=== PATIENT | female | born 1985 | race Caucasian/White ===

== ENCOUNTER 2018-01-17 03:26 | Emergency (ER) | payer OTHER ==
--- NOTE | 2018-01-17 03:48 | ED.PDOC ---
History of Present Illness - General Chief Complaint: Problem Time Seen by Provider: 01/17/18 03:44 Source: patient Exam Limitations: no limitations - History of Present Illness Timing/Duration: this morning, constant Quality: moderate, aching Onset Location: suprapubic Activites at Onset: none Improving Factors: nothing Worsening Factors: nothing Associated Symptoms: fever/chills Allergies/Adverse Reactions: Allergies NO KNOWN ALLERGY Allergy (Verified 01/17/18 03:44) Narcotics cause her to vomit. Home Medications: Ambulatory Orders Phenazopyridine HCl [Pyridium] 100 mg PO BID #20 tab 01/17/18 Phenazopyridine HCl [Pyridium] 200 mg PO TID #6 tab 01/17/18 Review of Systems - Review of Systems Constitutional: States: no symptoms reported EENTM: States: no symptoms reported Respiratory: States: no symptoms reported Cardiology: States: no symptoms reported Gastrointestinal/Abdominal: States: abdominal pain Genitourinary: States: dysuria Musculoskeletal: States: no symptoms reported Skin: States: no symptoms reported Neurological: States: headache Endocrine: States: no symptoms reported Hematologic/Lymphatic: States: no symptoms reported Family Medical History - Family History Mother Family History: No Known Living Status: Still Living Father Family History: No Known Living Status: Still Living Physical Exam - Physical Exam General Appearance: Alert, Well Developed, Well Groomed, Well Hydrated, Well Nourished Eyes, Ears, Nose, Throat Exam: PERRL/EOMI, normal ENT inspection Neck: non-tender, full range of motion, supple Cardiovascular/Respiratory: regular rate, rhythm, no M/R/G, normal peripheral pulses, no JVD, normal breath sounds Gastrointestinal/Abdominal: normal bowel sounds, non tender, soft, no organomegaly, no pulsatile mass Rectal Exam: deferred Back Exam: normal inspection Extremity: normal range of motion Neurologic: alert, oriented x 3 Progress - Progress Progress: 01/17/18 04:09 UA REPORTS OVER 50 WBC'S PER HPF, LEUCKOESTERASE POSITIVE. Departure - Departure Clinical Impression: Acute cystitis Qualifiers: Hematuria presence: with hematuria Qualified Code(s): N30.01 - Acute cystitis with hematuria Time of Disposition: 04:11 Disposition: Discharge to Home or Self Care Condition: Good Departure Forms: ED Discharge - Pt. Copy, Patient Portal Self Enrollment Instructions: DI for Urinary Tract Infection (UTI) Prescriptions: Phenazopyridine HCl [Pyridium] 200 mg PO TID #6 tab Phenazopyridine HCl [Pyridium] 100 mg PO BID #20 tab Home Medications: Ambulatory Orders Phenazopyridine HCl [Pyridium] 100 mg PO BID #20 tab 01/17/18 Phenazopyridine HCl [Pyridium] 200 mg PO TID #6 tab 01/17/18
[2018-01-17 03:56] VITALS: TEMP 99.3
[2018-01-17] MEDS ORDERED: cefTRIAXone SODIUM 1 GM VIAL IM ONE (04:09)
[2018-01-17] MEDS ORDERED: LIDOCAINE 1% 2 ML VIAL INJ ONE (04:19)
[2018-01-17] MEDS ORDERED: PHENAZOPYRIDINE HCL 200 MG TAB PO ONE (04:20)
[2018-01-17] MEDS: HYDROcodone 10MG/APAP 325MG 1 EA TAB PO ONE ×2 (04:26→04:30)
[2018-01-17] MEDS ORDERED: IBUPROFEN 200 MG TAB PO ONE (04:30)
[2018-01-17 04:41] VITALS: BP 117/78; O2SAT 98
== END 2018-01-17 04:41 | disposition home or self-care (01) ==
LOC: ER 03:26
DX: N30.01 Acute cystitis with hematuria (principal)
CPT/HCPCS: 81001; 87086; 87088; 87186; J0696